=== PATIENT | female | born 1980 | race Two or more races ===

== ENCOUNTER 2017-01-09 22:45 | Emergency (ER) | payer SELFPAY ==
[~2017-01-09] VITALS: Ht 152.4 cm; Wt 90.7 kg
--- NOTE | ~2017-01-09 | CT71 ---
[facility] A Service of [facility] RADIOLOGY TEXT RESULTS PATIENT: AURELIA LUJAN LOCATION: SED : 80 UNIT #: [id number] AGE: [address]: WOODY LIRIANO SEX: F ORDER DR: [id number] [place] [id number] E MR#: [id number] Acc #: [id number] NAME: AURELIA LUJAN : 1980 SEX: F STUDY DATE/TIME: 01/09/2017 23:20 UNIT: SED ROOM: STUDY DESCRIPTION: CT Head Wo Contrast Attending Physician: Woody Liriano Ordering Physician: Physician Non-Staff MEDICAL IMAGING REPORT This report is preliminary unless electronic signature is present. EXAM CT head, noncontrast, 01/09/2017 HISTORY 36-year-old female in the ED complaining of 2-day history of headache and right side ear pain. TECHNIQUE CT examination of the head was performed without IV contrast. This CT exam was performed with one or more of the following radiation dose reduction techniques: automatic exposure control, adjustment of mA and/or kV according to patient size, and iterative reconstruction. FINDINGS The examination is negative. No evidence of intracranial hemorrhage, masss, mass effect, cerebral edema, hydrocephalus or additional abnormality. IMPRESSION Negative head CT examination. Dictated by... Saud Castellanos M.D. THIS IS AN ELECTRONICALLY VERIFIED REPORT Saud Castellanos M.D. at 01/10/2017 6:07 AM DONNA/michael [facility] A Service [facility] RADIOLOGY TEXT RESULTS PATIENT: AURELIA LUJAN LOCATION: SED : 80 UNIT #: [id number] AGE: [address]: WOODY LIRIANO SEX: F ORDER DR: TD: 01/10/2017 00:50 JOB #: [id number] MEDICAL IMAGING REPORT Page 1 of 1
== END 2017-01-10 00:36 | disposition home or self-care (01) ==
LOC: SED 22:45
DX: H61.21 Impacted cerumen, right ear (principal); J45.909 Unspecified asthma, uncomplicated
CPT/HCPCS: 69209; 70450; 99284; Q2009